=== PATIENT | male | born 1950 | race Caucasian/White ===

== ENCOUNTER → 2018-01-31 | Day surgery (SDC) | payer OTHER ==
[2018-01-30 09:26] LABS: BASOPHILS # (AUTO) 0.1 (0.0-0.1); BASOPHILS % 0.9 % (0.0-1.0); EOSINOPHILS # (AUTO) 0.3 (0.0-0.4); EOSINOPHILS % 5.9 % (0.0-6.0); HEMATOCRIT 39.5 % (38.2-49.6); HEMOGLOBIN 13.3 g/dL (14.0-18.0); LYMPHOCYTES # (AUTO) 1.8 (1.0-3.2); LYMPHOCYTES % 34.5 % (18.0-39.1); MEAN CORPUSCULAR HGB CONC 33.7 g/dL (31-35); MEAN CORPUSCULAR VOLUME 95.2 fL (81-99); MONOCYTES # (AUTO) 0.5 (0.2-0.8); NEUTROPHILS # (AUTO) 2.6 (2.1-6.9); NEUTROPHILS % 48.3 % (38.7-80.0); PLATELET COUNT 293 x10e3/uL (140-360); RED BLOOD COUNT 4.15 x10e6/uL (4.3-5.7); RED CELL DISTRIBUTION WIDTH 12.9 % (11.7-14.4)
[2018-01-30 09:43] LABS: ANION GAP 10.1 mmol/L (8-16); BLOOD UREA NITROGEN 28 mg/dL (7-26); BUN/CREATININE RATIO 26 (6-25); CALCIUM 9.5 mg/dL (8.4-10.2); CARBON DIOXIDE 29 mmol/L (22-29); CHLORIDE 107 mmol/L (98-107); CREATININE, SERUM 1.06 mg/dL (0.72-1.25); EST GLOMERULAR FILTRATION RATE > 60 ML/MIN (60-); GLUCOSE 115 mg/dL (74-118); POTASSIUM 5.1 mmol/L (3.5-5.1); SODIUM 141 mmol/L (136-145)
--- NOTE | 2018-01-30 09:44 | Diagnostic Imaging Report ---
PROCEDURE: X-RAY CHEST, TWO VIEWS COMPARISON: None. INDICATIONS: PRE OPERATIVE CHEST X-RAY FOR KNEE SURGERY FINDINGS: LUNGS: No consolidations or edema. PLEURA: No effusions or pneumothorax. HEART \T\ MEDIASTINUM: The heart is enlarged. BONES \T\ SOFT TISSUES: No acute findings. Old left-sided rib fractures. Degenerative changes of the spine. CONCLUSION: Cardiomegaly without evidence of an acute abnormality. Chico Santoyo D.O. Dictated by: Chico Santoyo D.O. on 01/30/2018 at 9:40 Electronically approved by: Chico Santoyo D.O. on 01/30/2018 at 9:47
[~2018-01-31] MED LIST: BUPIVACAINE 0.5%/EPI 30 ML SDV INJ ONE; CLINDAMYCIN PHOS 900MG/ D5W 50 50 ML IV ONE; DEXAMETHASONE SOD PHOS INJ 4 MG/ML VIAL ONE; DORZOLAMIDE-TIM10 ML OD; ESIDRIX25 MG PO; FENOFIBRATE145 MG PO; FENTANYL CITRATE/PF 100MCG/2 ML INJ ONE; FLOMAX0.4 MG PO; LIDOCAINE HCL 2% LOCAL INJ 5 ML SDV VIAL INJ ONE; LUMIGAN2.5 M1 OU; MIDAZOLAM HCL 2 MG/2 ML VIAL ONE; MONTELUKAST SOD10 MG PO; NAPROXEN500 MG PO; ONDANSETRON HCL INJ 2 MG/ML VIAL ONE; PROPOFOL IV EMULSION 10 MG/ML 20 ML VIAL ONE; SERTRALINE HCL100 MG PO; SEVOFLURANE INHAL SOLN 250 ML PEN BTL ONE; TIZANIDINE HCL4 MG PO
--- OUTSIDE RECORDS SUMMARY | 2018-01-31 06:14 | XMS REPORT ---
Author Author [facility] Address Unknown Phone Unavailable Care Team Providers Care Transit Department Clerk Name Role Phone BRENTON LIANG Unavailable Unavailable Problems This patient has no known problems. Allergies, Adverse Reactions, Alerts This patient has no known allergies or adverse reactions. Medications This patient has no known medications. Results Test Description Test Time Test Comments Text Results Atomic Results Result Comments CHEST 2 VIEWS [place] [address] Patient Name: IVIS WNIKLER MR #: [id number] : 1950 Age/Sex: 67/M Req # : [id number] Adm Physician: Ordered by: BRENTON LIANG MD Report #: [id number] Location: OR Room/Bed: Procedure: 11 DX/CHEST 2 VIEWS Exam Date: 01/30/18 Exam Time : 0850 REPORT STATUS: Signed PROCEDURE: X-RAY CHEST, TWO VIEWS COMPARISON: None. INDICATIONS: PRE OPERATIVE CHEST X-RAY FOR KNEE SURGERY FINDINGS: LUNGS: No consolidations or edema. PLEURA: No effusions or pneumothorax. HEART T MEDIASTINUM: The heart is enlarged. BONES T SOFT TISSUES: No acute findings. Old left-sided rib fractures. Degenerative changes of the spine. CONCLUSION: Cardiomegaly without evidence of an acute abnormality. Teresa Santoyo D.O. Dictated by: Teresa Santoyo D.O. on 01/30/2018 at 9:40 Electronically approved by: Teresa Santoyo D.O. on 01/30/2018 at 9:47 Dictated By: TERESA SANTOYO DO 6 Transcribed By: JACOB on 01/30/18946 COPY TO: BRENTON LIANG MD
--- NOTE | 2018-01-31 10:51 | Operative Report ---
DATE OF PROCEDURE: January 31, 2018 PREOPERATIVE DIAGNOSES 1. Left medial meniscus tear. 2. Left knee degenerative joint disease of the knee. POSTOPERATIVE DIAGNOSES 1. Left medial meniscus tear. 2. Left knee degenerative joint disease of the knee. OPERATIONS/PROCEDURES PERFORMED 1. The patient underwent a left examination under anesthesia. 2. Left knee arthroscopy. 3. Left knee partial medial meniscectomy. 4. Left knee chondroplasty of the patella, the trochlea, the medial femoral condyle, the medial tibial plateau, the lateral femoral condyle, and lateral tibial plateau. 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 ANESTHESIA: General endotracheal intubation anesthesia. IV FLUIDS: Per the anesthesia record. BRIEF DESCRIPTION OF THE PATIENT'S OPERATIVE PROCEDURE: Mr. Mancera was taken to the operating room and placed in the supine position on the operating table. Following the induction of general anesthesia, as well as endotracheal intubation, the patient's left lower extremity was examined under anesthesia. He was found to have a mild effusion within the knee joint, but otherwise a ligamentously stable knee. The patient's lower extremity was prepped and draped in a standard surgical fashion. A 2-portal technique was used to provide this patient arthroscopic evaluation of the knee joint. Examination of the suprapatellar pouch, medial and lateral gutters found no evidence of loose bodies. There was, however, evidence of chondromalacia of the patellar and trochlear surfaces. The scope was advanced in the medial compartment. Examination of the medial compartment demonstrated a torn medial meniscus. There was also chondromalacia of the articulating surfaces. A combination of biting forceps and motorized shaver were used to resect the torn portion of the meniscus. Chondroplasties of the medial femoral condyle and medial tibial plateau were performed at this time. Scope was advanced into the intercondylar notch. Anterior cruciate ligament was identified and found to be intact. Scope was advanced in the lateral compartment. Examination of the lateral compartment demonstrated chondromalacia of the articulating surfaces. Chondroplasties of the lateral femoral condyle and lateral tibial plateau were performed at this time. Scope was advanced in the suprapatellar pouch, and chondroplasties of the patella and trochlea was performed. The knee was deflated of its sterile normal saline. Each of the portal sites were closed using 4-0 nylon suture. The portal sites as well as the knee itself was injected with 0.5% Marcaine with epinephrine. Sterile dressings were applied. The patient was then awakened and taken to the postanesthesia care unit in stable condition. Job#: [id number]
== END | disposition home or self-care (01) ==
LOC: OR 06:12
PROVIDERS: ATTEND Specialist
DX: S83.222A Peripheral tear of medial meniscus, current injury, left knee, initial encounter (principal); M17.12 Unilateral primary osteoarthritis, left knee; M22.42 Chondromalacia patellae, left knee; H40.9 Unspecified glaucoma; G47.30 Sleep apnea, unspecified; R00.1 Bradycardia, unspecified; F41.9 Anxiety disorder, unspecified; X58.XXXA Exposure to other specified factors, initial encounter; Z88.6 Allergy status to analgesic agent; Z88.0 Allergy status to penicillin; Z01.810 Encounter for preprocedural cardiovascular examination; Z01.812 Encounter for preprocedural laboratory examination; Z01.818 Encounter for other preprocedural examination; Z68.37 Body mass index [BMI] 37.0-37.9, adult
CPT/HCPCS: 29881; 36415; 71046; 80048; 85025; 93005; J1100; J2001; J2250; J2405